=== PATIENT | male | born 1945 | race Caucasian/White ===

== ENCOUNTER 2021-04-07 00:02 | Inpatient (IN) | payer MEDICARE ==
[~2021-04-07] VITALS: Ht 180.3 cm; Wt 79.4 kg
[2021-04-07] MEDS ORDERED: AMIT25 PO (00:30)
[2021-04-07] MEDS ORDERED: ASPI81CH PO (00:30)
[2021-04-07] MEDS ORDERED: CLOP75 PO (00:30)
[2021-04-07] MEDS ORDERED: METTREX2.5 PO (00:31)
[2021-04-07] MEDS ORDERED: FOLI1 PO (00:31)
[2021-04-07] MEDS ORDERED: LISINOPRIL2.5 MG PO (00:31)
[2021-04-07] MEDS ORDERED: Crestor20 MG PO (00:32)
[2021-04-07] MEDS ORDERED: PRED5 PO (00:32)
[2021-04-07] MEDS ORDERED: TAMS.4ER PO (00:33)
[2021-04-07] MEDS ORDERED: Percocet 10-321 EACH PO (00:34)
[2021-04-07] MEDS ORDERED: GABA300 PO (00:34)
[2021-04-07 05:11] LABS: BASOPHILS ABSOLUTE AUTO 0.04 K/mm3 (0.00-0.23); BASOPHILS PERCENT AUTO 0 % (0-2); EOSINOPHILS ABSOLUTE AUTO 0.44 K/mm3 (0.00-0.68); EOSINOPHILS PERCENT AUTO 4 % (0-6); Hemoglobin 12.2 g/dL (13.5-17.5); IMMATURE GRAN ABSOLUTE AUTO 0.03 K/mm3 (0.00-0.10); IMMATURE GRAN PERCENT AUTO 0 % (0-1); LYMPHOCYTES ABSOLUTE AUTO 2.58 K/mm3 (0.84-5.20); LYMPHOCYTES PERCENT AUTO 26 % (21-46); MONOCYTES ABSOLUTE AUTO 1.24 K/mm3 (0.16-1.47); MONOCYTES PERCENT AUTO 12 % (4-13); Mean Corpuscular HGB 35.7 pg (26.0-34.0); Mean Corpuscular HGB Conc 33.9 g/dL (31.5-36.5); Mean Corpuscular Volume 105 fL (80-100); NEUTROPHILS ABSOLUTE AUTO 5.78 K/mm3 (1.96-9.15); NEUTROPHILS PERCENT AUTO 57 % (41-73); Platelet Count 223 K/mm3 (150-400); RDW Coefficient Variation 14.9 % (11.7-14.2); RDW Standard Deviation 57.5 fL (35.1-46.3); Red Blood Cell Count 3.42 M/mm3 (4.30-5.90); White Blood Cell Count 10.11 K/mm3 (4.00-11.30)
[2021-04-07 05:37] LABS: Alanine Aminotransfer (ALT/SGP 18 U/L (12-78); Albumin, Blood 3.2 g/dL (3.4-5.0); Albumin/Globulin Ratio 0.9 (0.8-1.8); Alk Phos 43 U/L (50-136); Anion Gap 6 mmol/L (6-16); Aspartate Aminotrans (AST/SGOT 18 U/L (12-37); Bilirubin, Total 0.5 mg/dL (0.1-1.0); Blood Urea Nitrogen 22 mg/dL (8-24); Bun/Creatinine Ratio 21.2 (12.0-20.0); CO2, Blood 24 mmol/L (21-32); Calcium, Blood 8.8 mg/dL (8.5-10.1); Chloride, Blood 109 mmol/L (98-108); Creatinine, Blood 1.04 mg/dL (0.60-1.20); Globulin, Blood 3.7 g/dL (2.2-4.0); Glomerular Filtration Rate >60 (60-); Glucose, Blood 71 mg/dL (70-99); Potassium, Blood 4.4 mmol/L (3.5-5.5); Sodium, Blood 139 mmol/L (136-145); Total Protein, Blood 6.9 g/dL (6.4-8.2)
--- NOTE | 2021-04-07 06:02 | NUR ---
SHIFT SUMMARY S/P R FEM NECK FX, PT TRANSFERRED FROM [facility] IN [place], A/O X4, VSS, NPO AT ADMISSION, PAIN MANAGED PER EMAR, PT ORIENTED TO ROOM AND CALL LIGHT, C/O INCREASED PAIN W/ MOVEMENT, PT STATED HE WILL NOT HAVE SURGERY UNLESS IT IS ON THE BED HE IS CURRENTLY ON, PT REPORTS IT BEING TOO PAINFUL TO MOVE TO ANOTHER BED AGAIN. NO ACUTE EVENTS THIS SHIFT, CALL LIGHT IN REACH, WILL CTM AND REPORT TO ONCOMING DAY RN.
[2021-04-07 11:22] LABS: Source, Urine Catheter
[2021-04-07 11:45] LABS: Appearance, Urine Clear (Clear); Bilirubin, Urine Neg (Neg); Blood, Urine 1+ (Neg); Color, Urine Yellow (P-Yellow); Glucose Qualitative, Urine Neg (Neg); Ketones, Urine 3+ (Neg); Leukocyte Esterase, Urine Neg (Neg); Nitrite, Urine Neg (Neg); Protein, Urine Neg (Neg); Urobilinogen, Urine NORM (Normal)
[2021-04-07 11:58] LABS: Granular Casts Rare /lpf (0); Hyaline Casts Rare /lpf (0-2); WBC Cast Rare /lpf (0)
[2021-04-07 11:59] LABS: Bacteria Rare /hpf; Red Blood Cells, Urine 0-2 /hpf (0-2); Squamous Epithelial Cells Few /hpf (Few); White Blood Cells, Urine 0-2 /hpf (0-5)
--- NOTE | 2021-04-07 15:10 | NUR ---
History, Chart, Medications and Allergies reviewed before start of procedure.Patient confirms NPO status and agrees with scheduled surgery. Pre-Op teaching done. Pt verbalizes understanding. PT'S AT BEDSIDE TO SIGN CONSENTS.
--- NOTE | 2021-04-07 18:11 | NUR ---
JENNIFER CDI AT [facility] TO ROOM 217
--- NOTE | 2021-04-07 19:20 | NUR ---
SHIFT SUMMARY PT SOMEWHAT CONFUSED DURING MORNING. VERY PAINFUL TO RIGHT HIP. WENT TO OR WITH DR PETERSON FOR R HIP FX REPAIR. RETURNED TO UNIT ABOUT 1700. AQUACEL IN PLACE TO RIGHT HIP. PT DROWSY. VSS. FLUID RUNNING, TXA COMPLETED. ABLE TO WIGGLE RIGHT TOES AND ANKLE. TURCIOS IN PLACE AND DRAINING. REPORT GIVEN TO GRAVITY METER OBSERVER RN.
[2021-04-08 04:57] LABS: BASOPHILS ABSOLUTE AUTO 0.01 K/mm3 (0.00-0.23); BASOPHILS PERCENT AUTO 0 % (0-2); EOSINOPHILS PERCENT AUTO 0 % (0-6); Hematocrit 32.1 % (37.0-53.0); Hemoglobin 10.9 g/dL (13.5-17.5); IMMATURE GRAN ABSOLUTE AUTO 0.04 K/mm3 (0.00-0.10); IMMATURE GRAN PERCENT AUTO 0 % (0-1); LYMPHOCYTES ABSOLUTE AUTO 0.46 K/mm3 (0.84-5.20); LYMPHOCYTES PERCENT AUTO 4 % (21-46); MONOCYTES PERCENT AUTO 4 % (4-13); Mean Corpuscular HGB 34.7 pg (26.0-34.0); Mean Corpuscular Volume 102 fL (80-100); Mean Platelet Volume 10.3 fL (9.1-12.4); NEUTROPHILS PERCENT AUTO 92 % (41-73); Platelet Count 231 K/mm3 (150-400); RDW Coefficient Variation 14.1 % (11.7-14.2); Red Blood Cell Count 3.14 M/mm3 (4.30-5.90); White Blood Cell Count 10.91 K/mm3 (4.00-11.30)
--- NOTE | 2021-04-08 06:21 | NUR ---
SHIFT SUMMARY POD1 R VIKAS, A/O X4 THOUGH PT DOES NOT USE CALL LIGHT, VSS, TOLERATING PO BUT ONLY TAKING FLUIDS W/ MEDS, PAIN MANAGED PER EMAR, PT SLEPT THROUGH MOST OF THE SHIFT, DRESSING C/D/I, LEG ROLL BETWEEN THIGHS TO HELPL PREVENT CROSSING OF HIS LEGS R/T POSTERIOR APPROACH. NO ACUTE EVENTS THIS SHIFT, CALL LIGHT IN REACH, WILL CTM AND REPORT TO ONCOMING DAY RN.
--- NOTE | 2021-04-08 14:46 | NUR ---
THERAPY: PT WORKING WITH THERAPY TO GET OTERESE. TAM HERNANDEZ. PT ABLE TO AMBULATE ABOUT 25 FEET AND SIT IN CHAIR. PAIN TOLERABLE.
--- NOTE | 2021-04-08 18:05 | NUR ---
PT HAS BEEN STABLE THIS SHIFT. PT WORKED WELL WITH THERAPY TO SIT UP IN CHAIR AND AMBULATE. PAIN IS CONSISTENTLY HIGH. MEDS CHANGED THIS SHIFT. PT EATING WELL. TURCIOS DC'D THIS SHIFT, NO VOID YET. ENCOURAGING FLUIDS. DRESSING CDI. CIRC AND SENSATION WNL. LOTS OF FAMILY SUPPORT. PLAN FOR DC HOME WHEN ABLE. PLAN FOR DC HOME WHEN ABLE.
--- NOTE | 2021-04-09 03:18 | NUR ---
A/OX4. VSS ON RA. PAIN MANAGED WELL W/ OXYCODONE. UP W/ FWW AND GAITBELT. USING URINAL. USING CALL LIGHT TO MAKE NEEDS KNOW.
[2021-04-09 06:49] LABS: BASOPHILS ABSOLUTE AUTO 0.02 K/mm3 (0.00-0.23); BASOPHILS PERCENT AUTO 0 % (0-2); EOSINOPHILS ABSOLUTE AUTO 0.11 K/mm3 (0.00-0.68); EOSINOPHILS PERCENT AUTO 1 % (0-6); Hematocrit 32.1 % (37.0-53.0); Hemoglobin 10.9 g/dL (13.5-17.5); IMMATURE GRAN ABSOLUTE AUTO 0.04 K/mm3 (0.00-0.10); IMMATURE GRAN PERCENT AUTO 0 % (0-1); LYMPHOCYTES ABSOLUTE AUTO 2.16 K/mm3 (0.84-5.20); LYMPHOCYTES PERCENT AUTO 21 % (21-46); MONOCYTES ABSOLUTE AUTO 1.11 K/mm3 (0.16-1.47); MONOCYTES PERCENT AUTO 11 % (4-13); Mean Corpuscular HGB 34.8 pg (26.0-34.0); Mean Corpuscular Volume 103 fL (80-100); Mean Platelet Volume 10.1 fL (9.1-12.4); NEUTROPHILS ABSOLUTE AUTO 6.76 K/mm3 (1.96-9.15); NEUTROPHILS PERCENT AUTO 66 % (41-73); Platelet Count 233 K/mm3 (150-400); RDW Coefficient Variation 14.1 % (11.7-14.2); RDW Standard Deviation 52.3 fL (35.1-46.3); Red Blood Cell Count 3.13 M/mm3 (4.30-5.90)
--- NOTE | 2021-04-09 17:34 | NUR ---
SHIFT SUMMARY POD 2 R JUAN JOSE HIP PT [id number], HE HAS BEEN UP AND WALKING TO BATHROOM WITH MINIMAL ASSIST FOLLOWS TTWB WELL. PAIN IS IMPROVED DURING SHIFT. PT REPORTS 3-4/10 MORE TOWARDS BASELINE. AQUACEL IS CDI, TOLERATING PO WELL. VOIDING FREQUENTLY. PT PLANS TO DISCHARGE TO HOME OF [facility]. AWAITING CARE MANAGEMENT TO HELP FACILITATE POSSIBLE SNF PLACEMENT.
--- NOTE | 2021-04-10 06:40 | NUR ---
A/OX4. VSS ON RA. PAIN MANAGED WELL W/ 10MG OXYCODONE. DENIES N/V, SOB, AND CP. USING URINAL. SLEEPING B/W CARE. USING CALL LIGHT TO MAKE NEEDS KNOWN.
--- NOTE | 2021-04-10 19:42 | NUR ---
SHIFT SUMMARY PT IS POD#2 FROM R HIP REPAIR. PAIN MANAGED WITH OXYCODONE AND TYLENOL. PT'S FAMILY IS TRAVELING FROM [place] TOMORROW TO ASSIST HIM TO GET HOME. VSS. REPORT GIVEN TO ARJUN BAGLEY.
--- NOTE | 2021-04-11 05:41 | NUR ---
SHIFT SUMMARY POD 4 R JUAN JOSE HIP, A/O X4, VSS, TOLERATING PO, PATIENT REMAINED IN BED T/O NOC SHIFT, VOIDING WELL, PAIN MANAGED PER EMAR, NO ACUTE EVENTS THIS SHIFT. CALL LIGHT IN REACH, WILL CTM AND REPORT TO ONCOMING DAY RN.
[2021-04-11] MEDS ORDERED: ACET325 PO (15:25)
[2021-04-11] MEDS ORDERED: BISA10S PR (15:26)
[2021-04-11] MEDS ORDERED: MELA3 PO (15:26)
[2021-04-11] MEDS ORDERED: DOCU100 PO (15:26)
[2021-04-11] MEDS ORDERED: OXYC5 PO (15:27)
[2021-04-11] MEDS ORDERED: ONDA4ODT MM (15:27)
[2021-04-11] MEDS ORDERED: SENN187 PO (15:31)
--- NOTE | 2021-04-11 17:51 | NUR ---
SHIFT SUMMARY PT IS POD#4 FROM R HIP REPAIR WITH DR. PETERSON. PT IS A 1 PERSON ASSIST WHEN OOB. PT WAS EDUCATED TO NOT GET OOB WITHOUT ASSISTANCE FOR SAFETY. PAIN MANAGED WITH PO OXYCODONE THIS SHIFT. PLAN FOR DISCHARGE TOMORROW MORNING. WALKER HAS BEEN DELIVERED FOR PT TO TAKE HOME. PT REPORTS HIS FAMILY WILL BE HERE EARLY TOMORROW MORNING TO TAKE HIM HOME. VSS. WILL MONITOR UNTIL REPORT TO ONCOMING RN.
--- NOTE | 2021-04-12 06:43 | NUR ---
SHIFT SUMMARY POD5 R JUAN JOSE HIP W/ POSTERIOR PRECAUTIONS, AMBULATING W/ ASSISTANCE, TOLERATING PO, PAIN WELL MANAGED PER EMAR, WAS ABLE TO DC YESTERDAY BUT STAYED AN ADDITIONAL DAY DUE TO TRANSPORTATION. DC SET FOR LATER THIS AM, NO ACUTE EVENTS THIS SHIFT. CALL LIGHT IN REACH, WILL CTM AND REPORT TO ONCOMING DAY RN.
--- NOTE | 2021-04-12 10:24 | NUR ---
DISCHARGE SUMMARY PT ALERT AND ORIENTED. AMBULATING IN ROOM WITH SBA WITH FWW AND GAIT BELT. PAIN CONTROLLED WITH PO PAIN MEDS. AQUACEL TO RIGHT HIP C/D/I. TOLERATING REGULAR DIET AND FLUIDS. VOIDING WELL. DISCHARGE ORDERS OBTAINED. DISCHARGE EDUCATION GIVEN ON WOUND CARE, ACTIVITY, NEW RXS, AND FOLLOW UP APPTS. PT LEFT UNIT AT 0945 VIA WHEELCHAIR WITH FAMILY FOR HOME.
== END 2021-04-12 10:24 | disposition home or self-care (01) | DRG 522 ==
LOC: ER 00:02 → SURS 02:13
PROVIDERS: Internal Medicine; Orthopaedic Surgery; ADMIT Internal Medicine
PROC: 0SRR0JZ Replacement of Right Hip Joint, Femoral Surface with Synthetic Substitute, Open Approach (ICD-10-PCS; principal; 2021-04-07 15:15)
DX: S72.001A Fracture of unspecified part of neck of right femur, initial encounter for closed fracture (principal); G89.29 Other chronic pain; I10 Essential (primary) hypertension; I25.10 Atherosclerotic heart disease of native coronary artery without angina pectoris; M06.9 Rheumatoid arthritis, unspecified; Z79.82 Long term (current) use of aspirin; Z79.899 Other long term (current) drug therapy; Z87.891 Personal history of nicotine dependence; E78.5 Hyperlipidemia, unspecified; W18.30XA Fall on same level, unspecified, initial encounter
CPT/HCPCS: 36415; 72170; 73502; 73552; 80053; 81001; 85025; 93005; 93010; 94760; 94762; 96374; 96375; 97110; 97116; 97161; 97530; 99285-25; A9270; C1713; C1776; J0171; J0690; J0735; J1100; J1885; J2270; J2370; J2405; J2704; J2795; J3010; J7030; J7120; J7512; J8610